=== PATIENT | male | born 1985 | race Caucasian/White ===

== ENCOUNTER 2024-08-16 12:32 | Outpatient (REF) | payer OTHER, SELFPAY ==
--- OUTSIDE RECORDS SUMMARY | 2024-08-19 12:53 | XMS_ITS | Clinical Summary ---
Author Organization [facility] Address [address] [place] [phone] Phone [email or web address] Care Team Providers Care Corn Cooker Name Role Phone Unavailable Primary Care Provider Unavailabl e Allergies No known active allergies Medications No known medications Active Problems No known active problems Resolved Problems Problem Noted Date Diagnosed Date Resolved Date Encounter for immunization 02/18/2020 0 08/27/2021 Overview (07/22/2020): Encounter for screening, unspecified 10/21/2019 08/27/2021 Overview (07/22/2020): Pain in right wrist 03/04/2019 08/28/19 Overview (07/22/2020): Acute sinusitis, unspecified 11/14/2018 08/27/2021 Overview (07/22/2020): Acute pharyngitis, unspecified 08/29/2018 08/27/2021 Overview (07/22/2020): Pain in left shoulder 08/17/20182021 Overview (07/22/2020): Immunizations Immunization Administration Dates Next Due Influenza (Flucelvax) MDCK, PF, quad (CVX-171) 1 04/19/2019 Social History Tobacco Use Types Packs/Day Years Used Date Smoking Tobacco: Never Smokeless Tobacco: Never Comments:Smoking History Pac ks/day: 0 cigarettes Alcohol Use Standard Drinks/Week Comments Yes 0 (1 standard drink = 0.6 oz pur e alcohol) varies Intimate Partner Violence Answer Date R ecorded Insults You Not on file 07/18/2020 Threatens You Not on file 07/18/2020 Screams at You Not on file 07/18/2020 Physically Hurt Not on file 07/18/2020 Intimate Partner Violence Score Not on file 07/18/2020 Alcohol Use Answer Date Recorded Alcohol Use Status Yes 08/27/2021 Sex and Gender Information Value Date Recorded Sex Assigned at Male 11/17/2020 11:55 AM CDT Legal Sex Male 9:33 AM CDT Gender Identity Male 11/17/2020 11:55 AM CDT Sexual Orientation Not on file Last Filed Vital Signs Vital Sign Reading Time Taken Comments Blood Pressure 126/85 09/13/2021 3:29 PM MDT Pulse 63 09/13/2021 3:29 PM MDT Temperature 36.8 ??C (98.2 ??F) 09/13/2021 3:29 PM MD T Respiratory Rate 16 09/02/2021 8:27 AM MDT Oxygen Saturation 94% 09/13/2021 3:29 PM MDT Inhaled Oxygen Concentration - - Weight 79.4 kg (175 lb) 08/27/2021 12:17 PM MDT Height 172.7 cm (5' 8 ) 08/27/2021 12:17 PM MDT Body Mass Index 26.61 08/27/2021 12:17 PM MDT Plan of Treatment Health Maintenance Due Date Last Done Comments Dental Cleaning/Exam 1983 Hepatitis B Immunization (1 of 3 - 19+ 3-dose series) 12/05/2002 Tetanus Diphtheria and Pertussis Immunization (1 - Tdap) 12/05/2002 Covid-19 Immunization ( season) 2023 07/28/2020, 07/07/2020 Influenza Immunization (Season Ended) 2024 02/18/2020 HIB Immunization Aged Out No longer e ligible based on patient's age to complete this topic HPV Immunization Aged Out No longer e ligible based on patient's age to complete this topic Hepatitis A Immunization Aged Out No longer eligible based on patient's age to complete this topic Pneumococcal: Ped (0 to 5 Yrs) and At-Risk Member (6 to 64 Yrs) Aged Out No longer eligible b ased on patient's age to complete this topic Polio Immunization Aged Out No longer eligible based on patient's age to complete this topic Varicella Immunization Aged Out No lo nger eligible based on patient's age to complete this topic Insurance ALLEGIANCE NO COPAY
--- OUTSIDE RECORDS SUMMARY | 2024-08-19 12:54 | XMS_ITS | Clinical Summary ---
Author Organization [facility] Address [address] [facility] [address] [place] [address] Care Team Providers Care Coin Box Inspector Name Role Phone Sylvester Fernandez PA-C Primary Care Provider [phone] Allergies No known active allergies Medications barium sulfate (Readi-Cat 2) 2 % suspensionIndic ations:Left inguinal pain Please drink 1 bottle the night before CT Scan Please drink second bottle [address] scan 450 mL 03/31/2024 Active barium sulfate (Readi-Cat 2) 2 % suspensionIndic ations:Left inguinal pain Please drink 1 bottle the night before CT Scan Please drink second bottle [address] scan 450 mL 03/31/2024 Active terbinafine (LamISIL) 250 MG tabletIndicatio ns:Nail disorder Take 1 tablet (250 mg) by mouth Once per day. 42 tablet 06/27/2024 08/09/19 25 Active Problems Problem Noted Date Diagnosed Date Nail disorder 06/27/2024 Assessment & Plan (06/27/2024 3:20 PM EDT): Thickened nail over right thumb with previous history of trauma. Nail bed has remained the same for ~ 10 years. Possibly onychomycosis,, lower suspicion for psoriatic changes. - Start oral antifungal therapy with terbinafine for 6 weeks, pending liver enzyme check. Discussed SE profile. Patient expressed understanding and is in agreement with plan - Will place referral to dermatology Left inguinal pain 03/14/2024 Assessment & Plan (03/14/2024 9:02 AM EST): 38y/o M with pmhx significant for bilateral inguinal hernia surgery in 08/24, presents with atraumatic left inguinal pain with radiation to left testicle for the past two weeks. No associated aggravating or alleviating factors. No systemic symptoms. Physical exam did not demonstrate any obvious deformities, abdomen soft and non-tender to palpation. Possible issues with the surgical mesh from prior bilateral inguinal hernia repair in August 2023. Lower suspicionfor kidney stones, UTI, pyelo, testicular pathology, or intra-abdominal/colon-related pathology. - Order CT abdomen/pelvis with and without contrast to evaluate the area. - If findings are uneventful, consider scrotal ultrasound. - Repeat labs, including kidney function markers and urinalysis, to rule out UTI or other abnormalities. - Follow up with results. If recurrent hernia is identified, refer back to General Surgery. - Advise to report significant pain, erythema, bowel movement difficulties, or high fevers immediately. Patient expressed understanding and is in agreement with plan Chronic pain of both shoulders 06/22/2023 Assessment & Plan (06/27/2024 3:18 PM EDT): History significant for previous left shoulder dislocation when senior in high school and right labrum tear while in college. Has difficultly exercising due to pain. Chronic shoulder pain located over bilateral anterior humerus with occasional radiation down biceps bilaterally. Physical exam remarkable for + empty can and difficulty with internal ROM. Most likely chronic ligamentous, labral or tendon related issue. Less likely adhesive capsulitis or fracture. MRIs that were previously ordered were not completed. - Will place referral to ortho Assessment & Plan (06/22/2023 3:40 PM EDT): History significant for previous left shoulder dislocation when senior in high school and right labrum tear while in college. Has difficultly exercising due to pain. Chronic shoulder pain located over bilateral anterior humerus with occasional radiation down biceps bilaterally. Physical exam remarkable for + empty can and henderson test. Most likely chronic ligamentous, labral or tendon related issue. Less likely adhesive capsulitis or fracture. Patient has a history of imaging and will call and get records - Will order MRIs of both shoulders, if needed, will complete X-rays prior - Based upon results, will most likely refer to ortho - Will continue to monitor and evaluate Inguinal swelling 06/22/2023 Assessment & Plan (06/22/2023 3:42 PM EDT): Bilateral inguinal swelling and pain that is exacerbated with running. - Will order groin ultrasound to evaluate for bilateral hernias, if evidence of hernias, will refer to gen surgery - Described ER precautions, patient expressed understanding and is in agreement with plan Encounters Date Type Department Care Team Description 06/28/[address] [phone] Sylvester Fernandez PA-C 06/27/2024 2:40 PM EDT Office Visit [address] [phone] Sylvester Fernandez PA-C Vision screen without abnormal findings (Primary Dx); Lipid screening; Nail disorder; Chronic pain of both shoulders; Encounter for hepatitis C screening test for low risk patient; Encounter for screening for HIV 06/20/2024 Travel from Last 3 Months Immunizations Immunization Administration Dates Next Due Influenza Injectable Quadriv alant Preservative Free IIV4 MDCK 02/18/2020 Tdap 06/22/2023 Family History Medical History Relation Name Comments Alcohol abuse Father Dad Drug abuse Father Dad No Known Problems Maternal Grandfather Colon cancer Maternal Grandmother Unsure of diagnosis Diabetes Mother Mom No Known Problems Paternal Grandfather No Known Problems Paternal Grandmother Relation Name Status Comments Father Dad Maternal Grandfather Maternal Grandmother Mother Mom Paternal Grandfather Paternal Grandmother Social History Tobacco Use Types Packs/Day Years Used Date Smoking Tobacco: Never Smokeless Tobacco: Never Alcohol Use Standard Drinks/Week Comments Yes 8 (1 standard drink = 0.6 oz pur e alcohol) 4-7 per week Housing Stability Answer Date Recorded What is your housing situation today? I have lacie cottrell 06/27/[address] you li ve. Do you have problems with any of the following? Lead [place] or Pipes 06/27/2024 Food Insecurity Answer Date Recorded Within the past 12 months, y ou worried that your food would run out before you got money to buy more: Never True 06/27/2024 Within the past 12 months,th e food you bought just didn't last and you didn't have enough money to get more: Never True Transportation Answer Date Recorded In the past 12 months, has l ack of transportation kept you from medical appts, meetings, work or from getting things needed for daily living? No 06/27/2024 Intimate Partner Violence Answer Date R ecorded Within the last year, have y ou been afraid of your partner or ex-partner? 2 06/22/2023 Within the last year, have y ou been humiliated or emotionally abused in other ways by your partner or ex-partner? 2 Within the last year, have y ou been kicked, hit, slapped, or otherwise physically hurt by your partner or ex-partner? 2 06/22/2023 Within the last year, have y ou been raped or forced to have any kind of sexual activity by your partner or ex-partner? 2 06/22/2023 Utilities Answer Date Recorded In the past 12 months, has t he electric, gas, oil or water company threatened to shut off services in your home? 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 file Not on file Not on file Last Filed Vital Signs Vital Sign Reading Time Taken Comments Blood Pressure 128/70 06/27/2024 2:36 PM EDT Pulse 67 06/27/2024 2:36 PM EDT Temperature 36.4 ??C (97.6 ??F) 06/27/2024 2:36 PM ED T Respiratory Rate - - Oxygen Saturation 95% 06/27/2024 2:36 PM EDT Inhaled Oxygen Concentration - - Weight 83.9 kg (185 lb) 06/27/2024 2:36 PM EDT Height 174 cm (5' 8.5 ) 06/22/2023 2:50 PM EDT Body Mass Index 27.72 06/22/2023 2:50 PM EDT Plan of Treatment Upcoming Encounters Date Type Department Care Team ([facility] st Contact Info) Description 06/30/2025 3:00 PM EDT Office Visit [address] [phone] Sylvester Fernandez PA-C [address] [place] [address] Health Maintenance Due Date Last Done Comments Alcohol/Substance Use Screening 1995 Family Planning (PISQ) 12/05/1998 Hepatitis B Vaccines (1 of 3 - 19+ 3-dose series) 12/05/2002 Influenza Vaccine (#1) 2024 02/18/2020 Postp oned from 12/03/2023 (Patient Refused) COVID-19 Vaccine (1 - 2023-2 5 season) 2025 Postponed from 12/02 (Patient Refused) Depression Screening 06/27/2025 06/27/2024, 06/27/2024 SDOH Screening 06/27/2025 06/27/2024 Tobacco Screening 06/27/2025 06/27/2024 Lipid Panel 06/27/2029 06/27/2024, 06/22/2023 DTaP/Tdap/Td Vaccines (2 - T d or Tdap) 06/21/2033 06/22/2023 Zoster Vaccines (1 of 2) 12/05/2033 RSV Patients and Patients Aged 60 years or older (1 - 1-dose 75+ series) 12/05/2058 HIV Screening Completed 06/27/2024 Hepatitis C Screening Completed 06/27/2024 HIB Vaccines Aged Out No longer eligi ble based on patient's age to complete this topic HPV Vaccines Aged Out No longer eligi ble based on patient's age to complete this topic Hepatitis A Vaccines Aged Out No long er eligible based on patient's age to complete this topic IPV Vaccines Aged Out No longer eligi ble based on patient's age to complete this topic Meningococcal B Vaccine Aged Out No l onger eligible based on patient's age to complete this topic Meningococcal Vaccine Aged Out No nish carlin eligible based on patient's age to complete this topic Pneumococcal Vaccine: Pediatrics (0 to 5 Years) and At-Risk Patients (6 to 49) Years) Aged Out No longer eligible b ased on patient's age to complete this topic RSV under 20 months Aged Out No longe r eligible based on patient's age to complete this topic Rotavirus Vaccines Aged Out No longer eligible based on patient's age to complete this topic Procedures Procedure Name Priority Date/Time Associated Diagnosis Comments HEPATIC FUNCTION PANEL Routine 06/27/2024 3:24 PM EDT LIPID PANEL WITH REFLEX TO DIRECT LDL Routine 06/27/2024 3:24 PM EDT HEPATITIS C AB W/REFL TO HCV RNA, QN, PCR Routine 06/27/2024 3:24 PM EDT Encounter for hepatitis C screening test for low risk patient HIV 1/2 ANTIGEN/ANTIBODY, FOURTH GENERATION W/RFL Routine 06/27/2024 3:24 PM EDT Encounter for screening for HIV from Last 3 Months Results * (ABNORMAL) Lipid Panel with Reflex to Direct LDL (06/27/2024 3:24 PM EDT) Cholesterol, Total 235(H) <200 mg/dL [facility] HDL Cholesterol 56 > OR = 40 mg/dL [facility] Triglycerides 212(H) <150 mg/dL [facility] Comment: If a non-fasting specimen was collected, consider repeat triglyceride testing on a fasting specimen if clinically indicated. Liborio et al. J. of Clin. Lipidol. 2015;9:129-169. LDL Cholesterol 144(H) mg/dL [facility] Comment: Reference range: <100 Desirable range <100 mg/dL for primary prevention; ?? <70 mg/dL for patients with CHD or diabetic patients with > or = 2 CHD risk factors. LDL-C is now calculated using the Pablo calculation, which is a validated novel method providing better accuracy than the Friedewald equation in the estimation of LDL-C. Javier WAYNE et al. JADE. 2013;310(19): 1852-4863 (http://education.NXT-ID.[employer]/faq/TJK249) Chol/HDLC Ratio 4.2 <5.0 (calc) [facility] Non-HDL Cholesterol 179(H) <130 mg/dL [facility] Comment: For patients with diabetes plus 1 major ASCVD risk factor, treating to a non-HDL-C goal of <100 mg/dL (LDL-C of <70 mg/dL) is considered a therapeutic option. 06/27/2024 3:24 PM EDT 06/27/2024 3:25 PM EDT Narrative [facility] - 06/28/2024 12:20 PM EDT FASTING:NO FASTING: NO [employer] PA-C LAB BLOOD ORDERABLES Final Res ult Performing Organization Address [facility] de Phone Number [address] [phone] [facility] [address] [place] [phone] * Hepatitis C Antibody with Reflex to HCV, RNA, Quantitative, Real-Time PCR (06/27/2024 3:24 PM EDT) Hepatitis C Antibody NON-REACT BALJINDER NON-REACT BALJINDER [facility] Comment: HCV antibody was non-reactive. There is no laboratory evidence of HCV infection. In most cases, no further action is required. However, if recent HCV exposure is suspected, a test for HCV RNA (test code 73258) is suggested. For additional information please refer to http://education.Struq/faq/WLH16t8 (This link is being provided for informational/ educational purposes only.) Blood Venous blood specimen / Unknown 06/27/2024 3:24 PM EDT 06/27/2024 3:25 PM EDT Narrative [facility] - 06/28/2024 12:20 PM EDT FASTING:NO FASTING: NO [employer] PA-C LAB BLOOD ORDERABLES Final Res ult Performing Organization Address [facility] Co de Phone Number [address], [place] [address] [facility] [address] [place] [address] * HIV-1/2 Antigen and Antibodies, Fourth Generation, with Reflexes (06/27/2024 3:24 PM EDT) [facility] HIV Antigen/Antibody, 4th Generation NON-REAC TIVE NON-REAC TIVE [facility] Comment: HIV-1 antigen and HIV-1/HIV-2 antibodies were not detected. There is no laboratory evidence of HIV infection. PLEASE NOTE: This information has been disclosed to you from records whose confidentiality may be protected by state law. ??If your state requires such protection, then the state law prohibits you from making any further disclosure of the information without the specific written consent of the person to whom it pertains, or as otherwise permitted by law. A general authorization for the release of medical or other information is NOT sufficient for this purpose. ?? For additional information please refer to http://education.Struq/faq/MYT597 (This link is being provided for informational/ educational purposes only.) The performance of this assay has not been clinically validated in patients less than 2 years old. Blood Venous blood specimen / Unknown 06/27/2024 3:24 PM EDT 06/27/2024 3:25 PM EDT Narrative [facility] - 06/28/2024 12:20 PM EDT FASTING:NO FASTING: NO us Sylvester Fernandez PA-C LAB BLOOD ORDERABLES Final Res ult [facility] [address], [place] [address] [facility] [address] [place] [address] * Hepatic Function Panel (06/27/2024 3:24 PM EDT) [facility] Protein, Total 7.7 6.1 - 8.1 g/dL [facility] Albumin 4.8 3.6 - 5.1 g/dL [facility] Globulin 2.9 1.9 - 3.7 g/dL (calc) [facility] Albumin/Globulin Ratio 1.7 1.0 - 2.5 (calc) [facility] Bilirubin, Total 0.4 0.2 - 1.2 mg/dL [facility] Bilirubin, Direct 0.1 < OR = 0.2 mg/dL [facility] Bilirubin, Indirect 0.3 0.2 - 1.2 mg/dL (calc) [facility] Alkaline Phosphatase 63 36 - 130 U/L [facility] AST 30 10 - 40 U/L [facility] ALT 25 9 - 46 U/L [facility] 06/27/2024 3:24 PM EDT 06/27/2024 3:25 PM EDT Narrative [facility] - 06/28/2024 12:20 PM EDT FASTING:NO FASTING: NO Sylvester Fernandez PA-C LAB BLOOD ORDERABLES Final Res ult [facility] [address], [place] [address] [email or web address] [address] [place] [address] from Last 3 Months Insurance [employer] Care Teams Coin Box Inspector Relationship Specialty Start Date End Date Sylvester Fernandez PA-C [address] [place] [phone] PCP - General Family Medicine 06/22/23
--- OUTSIDE RECORDS SUMMARY | 2024-08-19 12:54 | XMS_ITS | Encounter Summary ---
Author Organization [facility] Address [address] [facility] [address] [place] [address] Care Team Providers Care Machine Setter Automatic Name Role Phone Sylvester Fernandez PA-C Primary Care Provider [phone] Encounter Details Date Type Department Care Team (Late st Contact Info) Description 07/13/2023 Telephone [facility] [address] [facility] [address] [place] [address] Sylvester Fernandez PA-C [address] [place], [place] [phone] Social History Tobacco Use Types Packs/Day Years Used Date Smoking Tobacco: Never Smokeless Tobacco: Never Alcohol Use Standard Drinks/Week Comments Yes 4 (1 standard drink = 0.6 oz pur e alcohol) 4-7 per week Housing Stability Answer Date Recorded What is your housing situation today? I have lacie cottrell 06/22/[address] you li ve. Do you have problems with any of the following? Pests such as bugs, ants, or mice 06/22/2023 Food Insecurity Answer Date Recorded Within the past 12 months, y ou worried that your food would run out before you got money to buy more: Never True 06/22/2023 Within the past 12 months,th e food you bought just didn't last and you didn't have enough money to get more: Never True Transportation Answer Date Recorded In the past 12 months, has l ack of transportation kept you from medical appts, meetings, work or from getting things needed for daily living? No 06/22/2023 Intimate Partner Violence Answer Date R ecorded [...] the past 12 months, has t he [employer], gas, oil or water [employer] threatened to shut off services in your home? 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 He doesn't want to fill out new patient paperwork for a new office so he'd like to be seensomewhere that has his information already. documented in this encounter Plan of Treatment Upcoming Encounters Date Type Department Care Team (Late st Contact Info) Description 06/30/2025 3:00 PM EDT Office Visit [facility] [address] [place] [phone] Sylvester Fernandez PA-C [address] [place] [phone] documented as of this encounter Visit Diagnoses Not on filedocumented in this encounter Care Teams Machine Setter Automatic Relationship Specialty Start Date End Date Sylvester Fernandez PA-C [address] [place] [phone] PCP - General Family Medicine 06/22/23 documented as of this encounter
== END 2024-08-16 12:33 | disposition home or self-care (01) ==
LOC: HO.HOSX 12:32
PROVIDERS: Visit Provider Physician Assistant
DX: Z13.89 Encounter for screening for other disorder (principal)